=== PATIENT | male | born 1980 | race Caucasian/White ===

== ENCOUNTER 2020-10-23 16:06 | Inpatient (IN) ==
[2020-10-23] MEDS ORDERED: Ketorolac 15 MG/ML VIAL IVP ONE (16:59)
[2020-10-23] MEDS ORDERED: Ringers Solution, Lactated 1,000 ML IVC ONE (16:59)
[2020-10-23] MEDS ORDERED: Metoclopramide 10 MG/2 ML VIAL IVP ONE (16:59)
[2020-10-23 18:05] LABS: BUN/Creatinine Ratio 7 (6-26); Blood Urea Nitrogen 6 mg/dL (6-20); Calcium 10.2 mg/dL (8.6-10.3); Carbon Dioxide 29 mEq/L (23-29); Chloride 103 mEq/L (98-107); Glucose 96 mg/dL (70-105); Osmolality,Calculated 283 (280-300); Potassium 3.9 mEq/L (3.5-5.1); Sodium 138 mEq/L (136-145); eGFR For African Americans > 60 (> 60); eGFR For Non-African Americans > 60 (> 60)
[2020-10-23 18:08] LABS: Basophils # 0.1 K/mcL (0.0-0.2); Basophils % 0.6 %; Eosinophils # 0.1 K/mcL (0.0-0.6); Eosinophils % 0.7 %; Hematocrit 42.7 % (37.5-50.1); Hemoglobin 14.6 g/dL (12.9-16.9); Immature Granulocytes % 0.2 % (0-4); Lymphocytes # 1.6 K/mcL (0.6-4.6); Lymphocytes % 16.8 %; Mean Corpuscular HGB Conc 34.2 g/dL (31.6-35.5); Mean Corpuscular Hemoglobin 30.1 pg (28.0-33.3); Mean Platelet Volume 8.5 fL (9.4-12.4); Monocytes # 0.6 K/mcL (0.0-1.3); Monocytes % 6.5 %; Neutrophils # 7.3 K/mcL (1.6-8.9); Platelet Count 368 K/mcL (140-400); Red Blood Count 4.85 M/mcL (4.19-5.50); Red Cell Distribution Width 11.8 % (11.5-14.5); Segmented Neutrophils % 75.2 %; White Blood Count 9.7 K/mcL (4.3-11.1)
[2020-10-23] MEDS ORDERED: *HR* LORazepam 2 MG/ML VIAL IVP ONE (18:21)
[2020-10-23 19:51] LABS: Acetaminophen < 10 mcg/mL (10-20); Ethanol < 10 mg/dL (Less than 10); Salicylate < 2.5 mg/dL (15.0-30.0)
[2020-10-23 20:02] LABS: Amphetamine Screen,Urine Negative ng/mL (Cutoff=1000); Barbiturate Screen,Urine Negative ng/mL (Cutoff=200); Benzodiazepines Screen,Urine Negative ng/mL (Cutoff=200); Cannabinoid Screen,Urine Negative ng/mL (Cutoff = 50); Cocaine Screen,Urine Negative ng/mL (Cutoff= 300); Opiate Screen,Urine Negative ng/mL (Cutoff=300); Phencyclidine Screen,Urine Negative ng/mL (Cutoff=25)
[2020-10-23 20:28] LABS: Bilirubin,Urine Negative (Negative); Blood,Urine Negative (Negative); Clarity,Urine Clear (Clear); Color,Urine Colorless (Yellow); Glucose,Urine (UA) Normal (Normal); Ketones,Urine Negative (Negative); Leukocyte Esterase,Urine Negative (Negative); Nitrite,Urine Negative (Negative); PH,Urine 7.5 pH Units (5.0-8.0); Protein,Urine Negative (Neg-Trace); Specific Gravity,Urine 1.007 (1.010-1.025); Urobilinogen,Urine Normal (Normal)
[2020-10-23] MEDS: Lithium Carbonate ER 450 MG TABLET.ER PO SCH (21:19)
[2020-10-23] MEDS ORDERED: *HR* LORazepam 2 MG/ML VIAL IM PRN (21:23)
[2020-10-23] MEDS ORDERED: Acetaminophen 325 MG TABLET PO PRN (21:23)
[2020-10-23] MEDS ORDERED: Haloperidol Lactate 5 MG/ML VIAL IM PRN (21:23)
[2020-10-23] MEDS ORDERED: *HR* LORazepam 1 MG TABLET PO PRN (21:23)
[2020-10-23] MEDS ORDERED: haloperidoL 5 MG TABLET PO PRN (21:23)
[2020-10-23 22:37] LABS: Influenza A PCR Negative (Negative); Influenza B PCR Negative (Negative); Resp. Syncytial Virus PCR Negative (Negative)
[2020-10-23 22:38] LABS: SARS-CoV-2 by PCR (In House) Negative (Negative)
[2020-10-24] MEDS: QUEtiapine Fumarate 25 MG TABLET PO PRN ×2 (00:10→20:12)
[2020-10-24] MEDS: hydrOXYzine pamoate 25 MG CAPSULE PO PRN ×2 (00:11→20:12)
[2020-10-24] MEDS ORDERED: Mag Hydrox/Al Hydrox/Simeth 30 ML UDC PO PRN (13:13)
[2020-10-24] MEDS ORDERED: MOM Conc 10 ML UD.LIQ PO PRN (13:13)
[2020-10-24] MEDS: amLODIPine 5 MG TABLET PO SCH (13:21)
[2020-10-24] MEDS: Lithium Carbonate ER 450 MG TABLET.ER PO SCH (20:12)
[2020-10-25] MEDS: amLODIPine 5 MG TABLET PO SCH (08:54)
[2020-10-25] MEDS: hydrOXYzine pamoate 25 MG CAPSULE PO PRN ×2 (10:16→21:03)
[2020-10-25] MEDS: ARIPiprazole 5 MG TABLET PO SCH (10:59)
[2020-10-25] MEDS ORDERED: ARIPiprazole 5 MG TABLET PO SCH (21:00)
[2020-10-25] MEDS: Lithium Carbonate ER 450 MG TABLET.ER PO SCH (21:03)
[2020-10-25] MEDS: QUEtiapine Fumarate 25 MG TABLET PO PRN (21:03)
[2020-10-26] MEDS: ARIPiprazole 5 MG TABLET PO SCH (08:54)
[2020-10-26 09:12] VITALS: BP 109/70; PULSE 109; TEMP 98.1; O2SAT 98
[2020-10-26] MEDS: amLODIPine 5 MG TABLET PO SCH (09:53)
== END 2020-10-26 14:30 | disposition home or self-care (01) | DRG 881 ==
LOC: EMEROOARM 16:06 → 1ANU 22:47
PROVIDERS: ADMIT Psychiatry & Neurology Psychiatry; ATTEND Psychiatry & Neurology Psychiatry